=== PATIENT | male | born 1935 | race Caucasian/White ===

== ENCOUNTER 2016-09-13 14:03 | Emergency (ER) | payer OTHER ==
[2016-09-13 14:16] VITALS: TEMP 97.3
--- NOTE | 2016-09-13 16:22 | EDPHY ---
HPI/HX/ROS/PE/MDM Narrative: Chief complaint: Eyebrow lack and lip black status post fall HPI: 81-year-old male states he tripped on a raised edge of the sidewalk today landing forward striking his face on the ground. He sustained a laceration above his left eye and to his mouth. He denies loss of consciousness. Does not have a headache. No nausea or vomiting. He does take a baby aspirin daily. He also lives alone. No recent illness. No chest pain or shortness of breath or palpitations. He did not have any syncope. States that this was a purely mechanical trip and fall. ROS: 10 point Review of Systems is negative except as noted in the HPI. Physical exam: Gen: Awake, Alert, No Distress HEENT: Face: He has a 1/2 cm laceration above his left eyelid Nose: no rhinorrhea Eyes: PERRLA, EOMI Mouth: Moist mucosa he is a deep laceration in oral mucosa which is through and through. He does have a 1 cm laceration of his upper lip. Really border is not involved. He has no dental avulsions. He does have a dental bridge in place. No maxillary or mandibular tenderness. No deformity. Neck: Supple, no JVD, nontender Chest: nontender, lungs clear to auscultation Heart: S1, S2 normal, no murmur Abd: Soft, non-tender, no guarding Back: no CVA tenderness, no midline tenderness Ext: no edema, non-tender Skin: no rash Neuro: CN II-XII intact, Sensation grossly intact, Strength 5/5 in bilateral upper and lower extremities ED Course: CT head: Subarachnoid night hemorrhage high in the left parietal interpreted by Dr. Guzman. Procedure: Laceration repair. Verbal consent was obtained from the patient. The 1 cm laceration on the left eyelid was anesthetized in the usual fashion. The wound was irrigated, draped and explored to its base with a gloved finger. There were no deep structures involved. No tendon injury was identified. The wound was repaired with 3, 6-0 fast-absorbing gut simple interrupted sutures. The wound repair was uncomplicated. The procedure was performed by myself. Procedure: Laceration repair. Verbal consent was obtained from the patient. The 1 cm laceration on the upper left lip was anesthetized in the usual fashion. The wound was irrigated, draped and explored to its base with a gloved finger. There were no deep structures involved. No tendon injury was identified. The wound was repaired with 3, 6-0 fast-absorbing gut simple interrupted sutures. The wound repair was uncomplicated. The procedure was performed by myself. ED Course: Patient is asymptomatically neurologically intact. Denies headache. He did have a fall lives alone has facial trauma and takes an aspirin. CT scan of the head was ordered. Is noted to be positive for a small subarachnoid hemorrhage. I have asked to page Neurosurgery. Case discussed with Dr. Us, neurosurgery. He has reviewed the CT. He will come and evaluate the patient in the emergency department with the possibility that the patient might be able to go home. 20:20 patient has be reviewed in the emergency department by Dr. Us, neurosurgery. Is been 6 hours since the patient's injuries. is comfortable discharging the patient home. His office will call the patient tomorrow in follow-up. Patient is stream return to the emergency department by calling 911 for any concerns. - Data Points Laboratory Results: Laboratory Results 09/13/16 17:43 09/13/16 17:43 09/13/16 17:43 WBC 9.00 10^3/uL (3.80-9.50) RBC 4.66 10^6/uL (4.40-6.38) Hgb 15.6 g/dL (13.7-17.5) Hct 45.5 % (40.0-51.0) MCV 97.6 fL (81.5-99.8) MCH 33.5 pg (27.9-34.1) MCHC 34.3 g/dL (32.4-36.7) RDW 13.6 % (11.5-15.2) Plt Count 162 10^3/uL (150-400) MPV 9.6 fL (8.7-11.7) Neut % (Auto) 78.5 H % (39.3-74.2) Lymph % (Auto) 13.4 L % (15.0-45.0) [place] % (Auto) 7.3 % (4.5-13.0) Eos % (Auto) 0.1 L % (0.6-7.6) Baso % (Auto) 0.3 % (0.3-1.7) Nucleat RBC Rel Count 0.0 % (0.0-0.2) Absolute Neuts (auto) 7.05 H 10^3/uL (1.70-6.50) Absolute Lymphs (auto) 1.21 10^3/uL (1.00-3.00) Absolute Monos (auto) 0.66 10^3/uL (0.30-0.80) Absolute Eos (auto) 0.01 L 10^3/uL (0.03-0.40) Absolute Basos (auto) 0.03 10^3/uL (0.02-0.10) Absolute Nucleated RBC 0.00 10^3/uL (0-0.01) Immature Gran % 0.4 % (0.0-1.1) Immature Gran # 0.04 10^3/uL (0.00-0.10) PT 14.2 SEC (12.0-15.0) INR 1.11 (0.83-1.16) APTT 25.7 SEC (23.0-38.0) Sodium 142 mEq/L (134-144) Potassium 4.2 mEq/L (3.5-5.2) Chloride 106 mEq/L (97-110) Carbon Dioxide 26 mEq/l (22-31) Anion Gap 10 mEq/L (8-16) BUN 23 mg/dL (7-23) Creatinine 1.0 mg/dL (0.7-1.3) Estimated GFR > 60 Glucose 107 H mg/dL (70-100) Calcium 8.9 mg/dL (8.5-10.4) General Time Seen by Provider: 09/13/16 16:04 Initial Vital Signs: Initial Vital Signs Temperature (C) 36.3 C 09/13/16 14:12 Heart Rate 60 09/13/16 14:12 Respiratory Rate 18 09/13/16 14:12 Blood Pressure 155/72 H 09/13/16 14:12 O2 Sat (%) 97 09/13/16 14:12 O2 Delivery Mode Room Air Allergies/Adverse Reactions: No Known Allergies Allergy (Unverified 09/13/16 14:11) Home Medications: Medication Instructions Recorded Aspirin 81mg (*) 09/13/16 SIMVASTATIN 09/13/16 Departure - Departure Disposition: Home, Routine, Self-Care Clinical Impression: Fall, Eyelid laceration, Lip laceration, Subarachnoid hemorrhage Condition: Good Instructions: Care For Your Absorbable Stitches (ED), Facial Laceration (ED), Head Injury (ED) Additional Instructions: Sutures are absorbable and do not need to be removed. Dr. Us's office will call you tomorrow to check on your condition. Call 911 for increasing headache, nausea, vomiting, increasing confusion, or any other concerns. Referrals: [place],. [Primary Care Provider] - As per Instructions Satnam Us MD [Medical Doctor] - As per Instructions
[2016-09-13 17:50] LABS: % IMMATURE GRANULYOCYTES 0.4 % (0.0-1.1); ABSOLUTE IMMATURE GRANULOCYTES 0.04 10^3/uL (0.00-0.10); ADD DIFF? NO; ADD MORPH? NO; ADD SCAN? NO; ATYPICAL LYMPHOCYTE FLAG 0 (0-99); FRAGMENT RBC FLAG 0 (0-99); HEMATOCRIT 45.5 % (40.0-51.0); HEMOGLOBIN 15.6 g/dL (13.7-17.5); LEFT SHIFT FLG 0 (0-99); LIPEMIA HEMOLYSIS FLAG 90 (0-99); MEAN CELL HEMOGLOBIN 33.5 pg (27.9-34.1); MEAN CELL HEMOGLOBIN CONCENTR. 34.3 g/dL (32.4-36.7); MEAN CELL VOLUME 97.6 fL (81.5-99.8); MEAN PLATELET VOLUME 9.6 fL (8.7-11.7); PLATELET CLUMPS FLAG 0 (0-99); PLATELET COUNT 162 10^3/uL (150-400); RED BLOOD CELL COUNT 4.66 10^6/uL (4.40-6.38); RED CELL DISTRIBUTION WIDTH 13.6 % (11.5-15.2)
--- NOTE | 2016-09-13 17:54 | CT ---
CT Brain (Without Contrast) September 13, 2016 at 1706 Hours History: Head trauma, fall, hit chin. Comparison: None. Technique: Axial computed tomographic images of the brain without contrast. Dose reduction techniques were utilized. Findings: Ventricles, cisterns, and sulci are widened consistent with atrophy. No hydrocephalus, mid line shift/herniation, or epidural/subdural hematomas. Several subcentimeter foci of subarachnoid hem orrhage involving the left posterior frontoparietal convexity in the central sulcus and precentral camargo lcus regions, axial images 23-27 of series 2. No associated mass effect. No epidural or subdural ladonna lisa. No skull fracture. No midline shift or herniation. Cerebrovascular atherosclerosis. Bone windo ws demonstrate no displaced fractures. Paranasal sinuses and mastoid air cells are clear. Left perior bital soft tissue swelling. Impressions: 1. Acute subarachnoid hemorrhage in the left frontoparietal convexity. 2. No hydrocephalus or mass effect. 3. Cerebrovascular atherosclerosis. 4. No definite acute infarct. 5. No epidural or subdural hematoma. 6. Left periorbital scalp hematoma. Findings and recommendations discussed with emergency department physician, Dr. Vaibhav Lee at 1725 hours today. Final report concurs with initial preliminary interpretation.
[2016-09-13 18:02] LABS: INR 1.11 (0.83-1.16); PROTIME(PATIENT) 14.2 SEC (12.0-15.0)
[2016-09-13 18:03] LABS: APTT 25.7 SEC (23.0-38.0)
[2016-09-13 18:06] LABS: ANION GAP 10 mEq/L (8-16); CALCIUM 8.9 mg/dL (8.5-10.4); CARBON DIOXIDE 26 mEq/l (22-31); CHLORIDE 106 mEq/L (97-110); GLOMERULAR FILTRATION RATE > 60; GLUCOSE 107 mg/dL (70-100); POTASSIUM 4.2 mEq/L (3.5-5.2); SODIUM 142 mEq/L (134-144)
[2016-09-13 20:27] VITALS: BP 160/72; PULSE 68; RESP 16; O2SAT 96
--- NOTE | 2016-09-13 21:43 | GCON ---
[f rep st] CONSULTATION NEUROSURGERY CONSULTATION DATE OF CONSULTATION: 09/13/2016 REASON FOR CONSULTATION: Mechanical fall with traumatic subarachnoid hemorrhage. HISTORY OF PRESENT ILLNESS: The patient is a pleasant 81-year-old gentleman who lives in [facility] who tripped over a sidewalk earlier today, leaning forward, striking his face on the ground. Herminia bunn sustained a laceration over his left eye and to his lip as well. There was no loss of consciousnes s. He was a little bit dazed after the fall. He was brought to the emergency room by a neighbor and at that point in time was found to have no neurological complaints. No nausea, no vomiting, no head aches. He was completely asymptomatic neurologically. His lacerations were repaired by the emergenc y room. A head CT showed a small amount of sulcal traumatic subarachnoid on the left side in the pre frontal sulcus. He does take a baby aspirin daily for general wellness. The trauma occurred about 2 :00 p.m. this afternoon and my interview with him was at approximately 8:00 p.m., a 6-hour observatio n. We discussed pro's and con's of staying versus leaving the hospital. I will make the decision th at it is safe for him to be discharged. PAST MEDICAL AND SURGICAL HISTORY: As stated in the HPI. Hypercholesterolemia, cholecystectomy, cat aract surgery, dental surgeries. ALLERGIES: No known drug allergies. HOME MEDICATIONS: Baby aspirin, cholesterol medication. FAMILY HISTORY: Noncontributory. SOCIAL HISTORY: Denies alcohol, tobacco, or drug abuse. Single and lives alone. REVIEW OF SYSTEMS: A 10-point review of systems was negative, except as noted in the HPI. PHYSICAL EXAMINATION: VITAL SIGNS: Temperature current 36.3, blood pressure ranging from 155-171 sy stolic over 70-74 diastolic, heart rate ranging from 60-74, respiratory rate 16-18, saturating 95-97% on room air. GENERAL: The patient is awake, alert, oriented x3, and appears stated age. He is in no acute distress. He has normal, fluent speech. HEENT: He has a left brow laceration repaired. I t is not actively bleeding. He has some swelling and bruising to his left upper lip as well. NEUROL OGICAL: He has normal cranial nerves. He has normal strength in all extremities. He has no pronato r drift. He has normal sensory and reflex exam. His gait is steady. LABS: White blood cells 9, hemoglobin 15.6, platelets 162. PT/INR 14.2/1.1, PTT 25.7. Sodium 142, potassium 4.2, BUN and creatinine 23 and 1.0, glucose 107, calcium 8.9. IMAGING: The patient has a noncontrasted head CT for review that shows some sulcal left frontopariet al traumatic subarachnoid, but otherwise a normal brain and no skull fracture. IMPRESSION AND PLAN: The patient is an 81-year-old gentleman who had a mechanical fall today who now has no neurological complaints, a completely normal neurological exam. The fall involved no loss of consciousness. His head CT shows a small amount of traumatic subarachnoid on the right side in the frontoparietal region. There are no other concerning findings. There has been a 6-hour period of ob servation between the time of his fall and the time of discharge from the emergency room. At this po int in time, there is no evidence to suggest that the patient will have an issue and I have never see n this amount of nontraumatic subarachnoid become a problem that requires any medical or surgical int ervention. To that end, I have told him it is safe for him to be discharged home this evening. He i s not requiring any extra medications. I have told him to stop taking his baby aspirin for a week. That is just for general wellness anyhow. We will contact him tomorrow or the next day to check on h is progress and I will provide him with a clinic visit should he need one. Thank you. /[id number]/MODL
== END 2016-09-13 20:27 | disposition home or self-care (01) ==
PROC: 0CQ0XZZ Repair Upper Lip, External Approach (ICD-10-PCS; principal; 2016-09-13)
DX: S01.112A Laceration without foreign body of left eyelid and periocular area, initial encounter (principal); S01.511A Laceration without foreign body of lip, initial encounter; S06.6X0A Traumatic subarachnoid hemorrhage without loss of consciousness, initial encounter; W01.198A Fall on same level from slipping, tripping and stumbling with subsequent striking against other object, initial encounter; Y92.480 Sidewalk as the place of occurrence of the external cause